=== PATIENT | female | born 1975 ===

== ENCOUNTER 2016-07-13 16:07 | Observation (INO) | payer MEDICAID ==
[2016-07-13] MEDS ORDERED: Oxycodone/Acetaminophen 5/325 mg Tab ONE (19:11)
[2016-07-13 20:01] LABS: RED CELL DISTRIBUTION WIDTH 21.7 % (11.5-14.5)
[2016-07-13 20:07] LABS: HEMATOCRIT 20.4 % (34.0-47.0); MEAN CELL VOLUME 54.9 fL (81.0-99.0); MEAN CORPUSCULAR HGB CONC 27.2 g/dL (33.0-37.0); MEAN PLATELET VOLUME 9.1 fL (7.2-11.7); WHITE BLOOD COUNT 6.7 K/uL (4.8-10.8)
[2016-07-13 20:08] LABS: CHLORIDE 101 mmol/L (98-107); SODIUM 138 mmol/L (132-148)
[2016-07-13 20:09] LABS: POTASSIUM 3.9 mmol/L (3.6-5.2)
[2016-07-13 20:11] LABS: ALB/GLOB RATIO 1.3 (1.0-2.1); AST/SGOT 27 U/L (14-36); BILIRUBIN,TOTAL 0.5 mg/dL (0.2-1.3); BLOOD UREA NITROGEN 9 mg/dL (7-17); CARBON DIOXIDE 26 mmol/L (22-30); GFR AFRICAN-AMERICAN > 60; GLUCOSE,RANDOM 85 mg/dL (65-105); TOTAL PROTEIN 7.7 g/dL (6.3-8.3)
[2016-07-13 20:12] LABS: ALKALINE PHOSPHATASE 77 U/L (38-126); ALT/SGPT 20 U/L (9-52); CALCIUM 8.3 mg/dl (8.6-10.4)
--- NOTE | 2016-07-13 22:17 | C.PDOC ---
History Of Present Illness Patient c/o low back pain x 2 days. patient denies any injuries. patient also c/ o generalized weakness, feeling tired all the time. Patient sts she has a daughter who is bed bound and has seizures, therefore patient never had time for herself to be checked. patient sts she has very heavy menstruations, but she never was was evaluated or taking Iron supplements. Chief Complaint (Nursing): Back Pain History Per: Patient History/Exam Limitations: no limitations Onset/Duration Of Symptoms: Days (2) Quality Of Discomfort: Aching Severity: Moderate Pain Scale Rating Of: 8 Exacerbating Factor(s): Movement Recent travel outside of the [place]: No Past Medical History Reviewed: Historical Data, Nursing Documentation, Vital Signs Vital Signs: Last Vital Signs Temp 98.2 F 07/13/16 22:35 Pulse 66 07/13/16 22:35 Resp 20 07/13/16 22:35 BP 105/51 L 07/13/16 22:35 Pulse Ox 100 07/13/16 22:35 - Medical History PMH: Anemia Surgical History: Tonsillectomy Family History: States: Unknown Family Hx - Social History Hx Alcohol Use: No Hx Substance Use: No - Immunization History Hx Tetanus Toxoid Vaccination: No Hx Influenza Vaccination: No Hx Pneumococcal Vaccination: No Review Of Systems Except As Marked, All Systems Reviewed And Found Negative. Constitutional: Positive for: Weakness, Malaise Musculoskeletal: Positive for: Back Pain Physical Exam - Physical Exam Appears: Non-toxic, No Acute Distress Skin: Pale Head: Atraumatic, Normacephalic Eye(s): bilateral: Conjunctiva Pale Gingiva: Normal Appearing Throat: Normal, No Erythema Neck: Normal ROM, No Midline Cervical Tenderness, No Paracervical Tenderness Chest: Symmetrical, No Tenderness Cardiovascular: Rhythm Regular, No Murmur Respiratory: Normal Breath Sounds, No Accessory Muscle Use Gastrointestinal/Abdominal: Normal Exam, Soft, No Tenderness Back: Normal Inspection, Vertebral Tenderness (LS spine area), Paraspinal Tenderness (LS spine area) Extremity: Normal ROM, No Tenderness Neurological/Psych: Oriented x3, Normal Speech, Normal Cognition, Normal Motor, Normal Sensation ED Course And Treatment - Laboratory Results Result Diagrams: 07/13/16 19:20 07/13/16 19:20 Lab Interpretation: Abnormal (severe anemia) O2 Sat by Pulse Oximetry: 100 - Other Rad LS spine xray X-Ray: Interpreted by Me Interpretation: No Fx, no litic lesions Progress Note: Labs were ordered and positive for severe anemia. 2 units of blood were ordered for transfusion. was paged and accepted patient to his service for observation, blood transfusion, notcher consult. Disposition - Disposition Disposition: HOSPITALIZED Disposition Time: 22:55 Condition: FAIR - Clinical Impression Clinical Impression: Low back pain, Symptomatic anemia Decision To Admit - Pt Status Changed To: Hospital Disposition Of: Observation - . Bed Request Type: Regular Admitting Physician: Zen Allred Patient Diagnosis: Low back pain, Symptomatic anemia
[2016-07-14 07:45] LABS: MEAN CORPUSCULAR HEMOGLOBIN 17.8 pg (27.0-31.0); MEAN CORPUSCULAR HGB CONC 29.4 g/dL (33.0-37.0); MEAN PLATELET VOLUME 9.1 fL (7.2-11.7); RED CELL DISTRIBUTION WIDTH 29.9 % (11.5-14.5); WHITE BLOOD COUNT 5.4 K/uL (4.8-10.8)
[2016-07-14 07:52] LABS: MEAN CELL VOLUME 60.6 fL (81.0-99.0)
--- NOTE | 2016-07-14 11:10 | RAD ---
HISTORY: ANEMIA COMPARISON: No prior. FINDINGS: LUNGS: No active pulmonary disease. PLEURA: No significant pleural effusion identified, no pneumothorax apparent. CARDIOVASCULAR: Normal. OSSEOUS STRUCTURES: No significant abnormalities. VISUALIZED UPPER ABDOMEN: Normal. OTHER FINDINGS: None. IMPRESSION: No active disease.
--- NOTE | 2016-07-14 11:14 | US ---
HISTORY: ANEMIA COMPARISON: None available TECHNIQUE: Sonographic evaluation of the abdomen. FINDINGS: LIVER: Measures 14.1 cm in sagittal dimension and appears within normal limits of size, shape, and echotexture. No focal hepatic mass identified. The main portal vein appears patent with normal directional flow. No intrahepatic bile duct dilatation. GALLBLADDER: Evidence of gallbladder polyps measuring up to 6 mm. No gallstones. Trace pericholecystic fluid. Gallbladder wall thickening measuring up to approximately 1 cm. Negative sonographic Beasley's sign as assessed by the cat scanner operator. COMMON BILE DUCT: Measures 5 mm. PANCREAS: Not well visualized. RIGHT KIDNEY: Measures 11.4 x 5.5 x 4.8 cm. No obstructing calculus or hydronephrosis identified. Calcification at the lower pole. LEFT KIDNEY: Measures 11.9 x 5.1 x 6.2 cm. No obstructing calculus or hydronephrosis identified. SPLEEN: Measures approximately 11.3 cm. AORTA: Limited views appear unremarkable. IVC: Limited views appear unremarkable. OTHER FINDINGS: None. IMPRESSION: Gallbladder polyps measuring up to 6 mm. No consensus exist regarding management of polyps in the size range. Current recommendations indicate continued surveillance with serial follow-up imaging at 3, 6, and 12 months. Markedly thickened gallbladder wall measuring approximately 1 cm with evidence of pericholecystic fluid. Negative sonographic Beasley's sign. No evidence of gallbladder calculi. Correlate clinically. Additional findings as above.
--- NOTE | 2016-07-14 11:25 | US ---
HISTORY: ANEMIA COMPARISON: Pelvic ultrasound performed 10/02/14 TECHNIQUE: Real-time transabdominal pelvic ultrasound was performed. In addition a transvaginal pelvic ultrasound was necessary to better depict pelvic anatomy FINDINGS: UTERUS: Measures 4.1 x 5.8 x 6.9 cm. Anteverted. Heterogeneous uterine parenchyma limits evaluation for small masses or fibroids. At least 2 probable uterine fibroids measuring approximately 2.0 x 1.9 x 2.1 cm (fundus) and 1.4 x 1.3 x 1.4 cm (superior midline ENDOMETRIUM: Measures 9 mm in diameter. CERVIX: No cervical abnormality identified. RIGHT OVARY: Measures 3.9 x 2.0 x 2.6 cm. Blood flow is demonstrated. LEFT OVARY: Measures 3.1 x 2.0 x 2.6 cm. Blood flow is demonstrated. 2.1 x 1.5 x 2.1 cm probable cyst. FREE FLUID: Small pelvic free fluid near the left ovary. OTHER FINDINGS: None. IMPRESSION: Heterogeneous uterine parenchyma. At least 2 probable uterine fibroids as above. 2.1 cm left ovarian cyst. Small pelvic free fluid near the left ovary.
--- NOTE | 2016-07-14 11:54 | RAD ---
PROCEDURE: Radiographs of the Lumbar Spine. HISTORY: BACK PAIN COMPARISON: No prior. FINDINGS: BONES: Normal alignment. No listhesis. No fracture. DISC SPACES: Narrowed L5-S1 disc space with mild marginal osteophyte formation. Consistent with degenerative disc disease. Remaining disc spaces are maintained in height. OTHER FINDINGS: None. IMPRESSION: Degenerative disc disease at L5-S1.
--- NOTE | 2016-07-14 14:12 | CP.PCM.CON ---
History of Present Illness - History of Present Illness History of Present Illness: 41 yo woman admitted with severe weakness,found to have severe anemia, S/P 2 units of PRBcs, getting her third unit. Patient is comfortable in bed, without chest pain or palpitations. The patient gives a history of heavy menstrual cycles, denies BRBPR, sarwat. Denies weight loss or nt.sweats Past Patient History - Infectious Disease Hx of Infectious Diseases: None - Past Medical History & Family History Past Medical History?: Yes - Past Social History Smoking Status: Never Smoked - CARDIAC Hx Cardiac Disorders: No - PULMONARY Hx Respiratory Disorders: No - NEUROLOGICAL Hx Neurological Disorder: No - HEENT Hx HEENT Problems: Yes Other/Comment: wears prescription eyeglasses - RENAL Hx Chronic Kidney Disease: No - ENDOCRINE/METABOLIC Hx Endocrine Disorders: No - HEMATOLOGICAL/ONCOLOGICAL Hx Blood Disorders: Yes Hx Anemia: Yes Other/Comment: Patient claimed having heavy menstrual period - INTEGUMENTARY Hx Dermatological Problems: No - MUSCULOSKELETAL/RHEUMATOLOGICAL Hx Musculoskeletal Disorders: No Hx Falls: No - GASTROINTESTINAL Hx Gastrointestinal Disorders: No - GENITOURINARY/GYNECOLOGICAL Hx Genitourinary Disorders: No - PSYCHIATRIC Hx Psychophysiologic Disorder: No Hx Substance Use: No - SURGICAL HISTORY Hx Surgeries: Yes Hx Section: Yes Hx Tonsillectomy: Yes - ANESTHESIA Hx Anesthesia: Yes Hx Anesthesia Reactions: No Hx Malignant Hyperthermia: No Has any member of the family had a problem w/ anesthesia?: No Meds Allergies/Adverse Reactions: Allergies Allergy/AdvReac Type Severity Reaction Status Date / Time No Known Allergies Allergy Verified 07/13/16 20:48 - Medications Medications: Current Medications Acetaminophen (Tylenol 325mg Tab) 650 mg PO Q6 PRN PRN Reason: Pain, moderate (4-7) Last Admin: 07/14/16 12:09 Dose: 650 mg Ferric Sodium Gluconate Complex (Ferrlecit) 125 mg IVPB DAILY WENDY Stop: 07/23/16 10:01 Results - Vital Signs Recent Vital Signs: Last Vital Signs Temp 98.6 F 07/14/16 13:40 Pulse 68 07/14/16 13:40 Resp 18 07/14/16 13:40 BP 107/66 07/14/16 13:40 Pulse Ox 99 07/14/16 07:49 - Labs Result Diagrams: 07/14/16 07:09 05/18/17 19:20 Labs: Laboratory Results - last 24 hr 07/14/16 07:09 WBC 5.4 RBC 3.96 Hgb 7.1 L Hct 24.0 L MCV 60.6 L D MCH 17.8 L MCHC 29.4 L RDW 29.9 H Plt Count 296 MPV 9.1 Assessment & Plan (1) Symptomatic anemia Assessment and Plan: 41 yo woman admitted with weakness, found to have severe microcytic anemia most likely iron deficiency from heavy periods. Will check Iron studies and B12. Have discussed with patient regarding the above, if discharged on the weekend, she will call me next week for results to check the need for more iv iron. Rec- Liquid Sugar Fortifier follow up as out patient Status: Acute
[2016-07-14 21:23] LABS: IRON 23 ug/dL (37-170)
--- NOTE | 2016-07-14 22:32 | CP.PCM.HP ---
History of Present Illness - History of Present Illness History of Present Illness: 41 year old female with extreme weakness goes to the [facility] ER. Patient has had extremely heavy periods. Hgb 5 and 2 units of packed cells were immediately transfused. Hematology consult requested... Present on Admission - Present on Admission Any Indicators Present on Admission: No History of DVT/PE: No History of Uncontrolled Diabetes: No Urinary Catheter: No Decubitus Ulcer Present: No History Surgical Site Infection Following: None Review of Systems - Constitutional Constitutional: Weakness - EENT Nose/Mouth/Throat: Dry Mouth - Cardiovascular Cardiovascular: Dyspnea on Exertion - Respiratory Respiratory: Dyspnea - Reproductive: Female Reproductive:Female: Heavy Menses - Musculoskeletal Musculoskeletal: Arthralgias - Integumentary Integumentary: Dry Skin Past Patient History - Infectious Disease Hx of Infectious Diseases: None - Past Medical History & Family History Past Medical History?: Yes - Past Social History Smoking Status: Never Smoked Chewing Tobacco Use: No Cigar Use: No - CARDIAC Hx Cardiac Disorders: No - PULMONARY Hx Respiratory Disorders: No - NEUROLOGICAL Hx Neurological Disorder: No - HEENT Hx HEENT Problems: Yes Other/Comment: wears prescription eyeglasses - RENAL Hx Chronic Kidney Disease: No - ENDOCRINE/METABOLIC Hx Endocrine Disorders: No - HEMATOLOGICAL/ONCOLOGICAL Hx Blood Disorders: Yes Hx Anemia: Yes Other/Comment: Patient claimed having heavy menstrual period - INTEGUMENTARY Hx Dermatological Problems: No - MUSCULOSKELETAL/RHEUMATOLOGICAL Hx Musculoskeletal Disorders: No Hx Falls: No - GASTROINTESTINAL Hx Gastrointestinal Disorders: No - GENITOURINARY/GYNECOLOGICAL Hx Genitourinary Disorders: No - PSYCHIATRIC Hx Psychophysiologic Disorder: No Hx Substance Use: No - SURGICAL HISTORY Hx Surgeries: Yes Hx Section: Yes Hx Tonsillectomy: Yes - ANESTHESIA Hx Anesthesia: Yes Hx Anesthesia Reactions: No Hx Malignant Hyperthermia: No Has any member of the family had a problem w/ anesthesia?: No Meds Allergies/Adverse Reactions: Allergies Allergy/AdvReac Type Severity Reaction Status Date / Time No Known Allergies Allergy Verified 07/13/16 20:48 Physical Exam - Constitutional Appears: No Acute Distress - Head Exam Head Exam: ATRAUMATIC - Eye Exam Eye Exam: Normal appearance Pupil Exam: NORMAL ACCOMODATION - ENT Exam ENT Exam: Normal Exam - Neck Exam Neck exam: Positive for: Normal Inspection - Respiratory Exam Respiratory Exam: Decreased Breath Sounds, Clear to Auscultation Bilateral - Cardiovascular Exam Cardiovascular Exam: REGULAR RHYTHM - GI/Abdominal Exam GI & Abdominal Exam: Normal Bowel Sounds - Rectal Exam Rectal Exam: Deferred - Exam External exam: NORMAL EXTERNAL EXAM - Back Exam Back exam: NORMAL INSPECTION - Neurological Exam Neurological exam: Oriented x3 - Psychiatric Exam Psychiatric exam: Normal Affect - Skin Skin Exam: Dry Results - Vital Signs Recent Vital Signs: Last Vital Signs Temp 98.1 F 07/14/16 16:54 Pulse 69 07/14/16 16:54 Resp 18 07/14/16 16:54 BP 106/74 07/14/16 16:54 Pulse Ox 98 07/14/16 15:15 - Labs Result Diagrams: 07/14/16 07:09 07/13/16 19:20 Labs: Laboratory Results - last 24 hr 07/14/16 07/14/16 07/14/16 07:09 20:47 20:47 WBC 5.4 RBC 3.96 Hgb 7.1 L Hct 24.0 L MCV 60.6 L D MCH 17.8 L MCHC 29.4 L RDW 29.9 H Plt Count 296 MPV 9.1 Retic Count Iron 23 L TIBC 445 % Saturation 5 L Ferritin 3.2 Vitamin B12 538 07/14/16 20:47 WBC RBC Hgb Hct MCV MCH MCHC RDW Plt Count MPV Retic Count 2.0 H Iron TIBC % Saturation Ferritin Vitamin B12 Assessment & Plan (1) Vaginal bleeding Status: Acute Priority: High (2) Low back pain Status: Acute Priority: Medium (3) Symptomatic anemia Status: Acute Priority: High
--- NOTE | 2016-07-14 22:49 | CP.PCM.CON ---
History of Present Illness - History of Present Illness History of Present Illness: Called to see 41yo female who is s/p hemotransfusion 3 units PRBC for severe anemia secondary to heavy menstrual bleeding since about 1 year ago. Pt is last child 9years old. H/O of previous C/s X2 and a BTL. Had her menarche at age 14 and had been having regular periods until about a year ago when she started having heavy bleeds lasting for 4-5day and having to change herself very frequently with clots. The last time she saw a boat hoist operator helper and had a pap test was about 3 years ago. She currently reports that she feels well after the hemotransfusion and is currently not bleeding. Discussion on the possible causes of excessive menstrual bleeding was done with patient, also indicating that she would have to f/u with a boat hoist operator helper for further management of menorrhagia upon discharge. Questions from Pt were answered. Review of Systems - Reproductive: Female Reproductive:Female: Heavy Menses, Abnormal Vaginal Bleeding Past Patient History - Infectious Disease Hx of Infectious Diseases: None - Past Medical History & Family History Past Medical History?: Yes - Past Social History Smoking Status: Never Smoked Chewing Tobacco Use: No Cigar Use: No - CARDIAC Hx Cardiac Disorders: No - PULMONARY Hx Respiratory Disorders: No - NEUROLOGICAL Hx Neurological Disorder: No - HEENT Hx HEENT Problems: Yes Other/Comment: wears prescription eyeglasses - RENAL Hx Chronic Kidney Disease: No - ENDOCRINE/METABOLIC Hx Endocrine Disorders: No - HEMATOLOGICAL/ONCOLOGICAL Hx Blood Disorders: Yes Hx Anemia: Yes Other/Comment: Patient claimed having heavy menstrual period - INTEGUMENTARY Hx Dermatological Problems: No - MUSCULOSKELETAL/RHEUMATOLOGICAL Hx Musculoskeletal Disorders: No Hx Falls: No - GASTROINTESTINAL Hx Gastrointestinal Disorders: No - GENITOURINARY/GYNECOLOGICAL Hx Genitourinary Disorders: No : 3 Para: 3 - PSYCHIATRIC Hx Psychophysiologic Disorder: No Hx Substance Use: No - SURGICAL HISTORY Hx Surgeries: Yes Hx Section: Yes Hx Tonsillectomy: Yes - ANESTHESIA Hx Anesthesia: Yes Hx Anesthesia Reactions: No Hx Malignant Hyperthermia: No Has any member of the family had a problem w/ anesthesia?: No Meds Allergies/Adverse Reactions: Allergies Allergy/AdvReac Type Severity Reaction Status Date / Time No Known Allergies Allergy Verified 07/13/16 20:48 - Medications Medications: Current Medications Acetaminophen (Tylenol 325mg Tab) 650 mg PO Q6 PRN PRN Reason: Pain, moderate (4-7) Last Admin: 07/14/16 12:09 Dose: 650 mg Ferric Sodium Gluconate Complex (Ferrlecit) 125 mg IVPB DAILY WENDY Stop: 07/23/16 10:01 Physical Exam - Constitutional Appears: Well - Respiratory Exam Respiratory Exam: Clear to Auscultation Bilateral, NORMAL BREATHING PATTERN - Cardiovascular Exam Cardiovascular Exam: REGULAR RHYTHM - GI/Abdominal Exam GI & Abdominal Exam: Normal Bowel Sounds - Exam External exam: NORMAL EXTERNAL EXAM Bimanual exam: Uterine Enlargement - Neurological Exam Neurological exam: Oriented x3 Results - Vital Signs Recent Vital Signs: Last Vital Signs Temp 98.1 F 07/14/16 16:54 Pulse 69 07/14/16 16:54 Resp 18 07/14/16 16:54 BP 106/74 07/14/16 16:54 Pulse Ox 98 07/14/16 15:15 - Labs Result Diagrams: 07/14/16 07:09 07/13/16 19:20 Labs: Laboratory Results - last 24 hr 07/14/16 07/14/16 07/14/16 07:09 20:47 20:47 WBC 5.4 RBC 3.96 Hgb 7.1 L Hct 24.0 L MCV 60.6 L D MCH 17.8 L MCHC 29.4 L RDW 29.9 H Plt Count 296 MPV 9.1 Retic Count Iron 23 L TIBC 445 % Saturation 5 L Ferritin 3.2 Vitamin B12 538 07/14/16 20:47 WBC RBC Hgb Hct MCV MCH MCHC RDW Plt Count MPV Retic Count 2.0 H Iron TIBC % Saturation Ferritin Vitamin B12 Assessment & Plan (1) Menses regular with excessive bleeding Status: Resolved (2) Fibroid, uterine Status: Chronic - Assessment and Plan (Free Text) Plan: Continue with Current management as per medicine. Recommends d/c home after hemotransfusion if stable. Recommends f/u with boat hoist operator helper for further management of menorrhagia. ( [facility] on wednesdays from 8:30am - 2 pm. [phone]). Reconsult as needed. - Date & Time Date: 07/14/16 Time: 22:58
[2016-07-14 23:10] LABS: BASO # 0.1 K/uL (0.0-0.2); BASO % 1.2 % (0.0-2.0); EOS # 0.2 K/uL (0.0-0.7); EOS % 3.3 % (0.0-4.0); LYMPH % 43.7 % (20.0-40.0); MEAN CELL VOLUME 63.1 fL (81.0-99.0); MEAN CORPUSCULAR HEMOGLOBIN 19.6 pg (27.0-31.0); MEAN CORPUSCULAR HGB CONC 31.1 g/dL (33.0-37.0); MEAN PLATELET VOLUME 8.8 fL (7.2-11.7); MONO # 0.4 K/uL (0.0-0.8); MONO % 5.4 % (0.0-10.0); NRBC % 0.3 % (0.0-2.0); RED CELL DISTRIBUTION WIDTH 31.8 % (11.5-14.5); WHITE BLOOD COUNT 6.9 K/uL (4.8-10.8)
[2016-07-14 23:38] VITALS: RESP 20
[2016-07-15 07:49] LABS: BASO # 0.1 K/uL (0.0-0.2); BASO % 1.1 % (0.0-2.0); EOS # 0.3 K/uL (0.0-0.7); EOS % 4.1 % (0.0-4.0); LYMPH # 2.1 K/uL (1.0-4.3); LYMPH % 30.1 % (20.0-40.0); MEAN CELL VOLUME 63.1 fL (81.0-99.0); MEAN CORPUSCULAR HEMOGLOBIN 19.5 pg (27.0-31.0); MEAN PLATELET VOLUME 9.6 fL (7.2-11.7); MONO # 0.4 K/uL (0.0-0.8); MONO % 5.7 % (0.0-10.0); NRBC % 0.1 % (0.0-2.0); RED CELL DISTRIBUTION WIDTH 32.2 % (11.5-14.5); WHITE BLOOD COUNT 6.9 K/uL (4.8-10.8)
[2016-07-15 08:24] LABS: CHLORIDE 102 mmol/L (98-107); POTASSIUM 3.8 mmol/L (3.6-5.2); SODIUM 137 mmol/L (132-148)
[2016-07-15 08:27] LABS: BLOOD UREA NITROGEN 10 mg/dL (7-17); CARBON DIOXIDE 26 mmol/L (22-30); GFR AFRICAN-AMERICAN > 60; GLUCOSE,RANDOM 82 mg/dL (65-105)
[2016-07-15 08:28] LABS: CALCIUM 8.1 mg/dl (8.6-10.4)
[2016-07-15] MEDS ORDERED: Ferric Sodium Gluconat Complex 62.5 mg/5 ml Vial IVPB SCH (10:00)
[2016-07-15 16:51] VITALS: BP 128/78; PULSE 63; TEMP 97.8; O2SAT 100
--- NOTE | 2016-07-15 22:15 | CP.PCM.PN ---
Subjective - Date & Time of Evaluation Date of Evaluation: 07/15/16 Time of Evaluation: 15:30 - Subjective Subjective: Patient is alert and responsive. She has been transfused with 3 units of packed cells.Patient has a disabled daughter at home and she is anxious to be discharged. She does not have any active vaginal bleeding at this time. Patient go to jar filler's office sunday morning for iron infusion. She promises to see her SPECIAL INVESTIGATION UNIT INVESTIGATOR specialist as soon as possible. Objective - Vital Signs/Intake and Output Vital Signs (last 24 hours): Temp Pulse Resp BP Pulse Ox 97.8 F 63 20 128/78 100 07/15/16 15:00 07/15/16 15:00 07/15/16 15:00 07/15/16 15:00 07/15/16 15:00 Intake and Output: 07/15/16 07/16/16 18:59 06:59 Intake Total 810 Balance 810 - Labs Labs: 07/15/16 07:20 07/15/16 07:20 - Constitutional Appears: No Acute Distress - Head Exam Head Exam: NORMOCEPHALIC - Eye Exam Eye Exam: Normal appearance Pupil Exam: NORMAL ACCOMODATION - ENT Exam ENT Exam: Normal Oropharynx - Neck Exam Neck Exam: Normal Inspection - Respiratory Exam Respiratory Exam: NORMAL BREATHING PATTERN - Cardiovascular Exam Cardiovascular Exam: REGULAR RHYTHM - GI/Abdominal Exam GI & Abdominal Exam: Normal Bowel Sounds - Rectal Exam Rectal Exam: Deferred - Extremities Exam Extremities Exam: Normal Capillary Refill - Back Exam Back Exam: NORMAL INSPECTION - Neurological Exam Neurological Exam: Oriented x3 - Psychiatric Exam Psychiatric exam: Normal Affect - Skin Skin Exam: Dry, Pallor Assessment and Plan (1) Vaginal bleeding Status: Acute (2) Low back pain Status: Acute (3) Symptomatic anemia Status: Acute
--- NOTE | 2016-07-17 11:12 | CARD ---
APPROVED REPORT EKG Measurement Heart [id number] <Conclusion> Normal sinus rhythm Low voltage QRS Nonspecific T wave abnormality Abnormal ECG
== END 2016-07-15 17:30 | disposition home or self-care (01) ==
LOC: C.ER 16:07 → C.3T 22:50
PROVIDERS: ADMIT Internal Medicine; ATTEND Internal Medicine
DX: D50.9 Iron deficiency anemia, unspecified (principal); N92.0 Excessive and frequent menstruation with regular cycle; M54.5 Low back pain
CPT/HCPCS: 36415; 36430; 71010; 72100; 76700; 76830; 76856; 80048; 80053; 82607; 82728; 83540; 83550; 85025; 85027; 85044; 86850; 86900; 86920; 99281; G0378; J2916; P9051

== ENCOUNTER 2016-07-17 08:48 | Emergency (ER) | payer MEDICAID ==
[2016-07-17 08:53] VITALS: TEMP 98; O2SAT 100
--- NOTE | 2016-07-17 09:13 | C.PDOC ---
History Of Present Illness 41 year old patient presents to the ED complaining of back pain that is worse today. Patient was seen here 3 days ago for back pain and was found to be anemic. She was admitted for a blood transfusion. Today, she was supposed to be seen by her ground school instructor in the office for an iron infusion. Patient states she still has the back pain which prompted the visit. She denies dysuria, nausea, vomiting, numbness, weakness, or incontinence. Time Seen by Provider: 07/17/16 09:12 Chief Complaint (Nursing): Back Pain History Per: Patient History/Exam Limitations: no limitations Onset/Duration Of Symptoms: Days (3), Worse Since (today) Current Symptoms Are (Timing): Still Present Quality Of Discomfort: "Pain" Severity: Mild Pain Scale Rating Of: 3 Previous Symptoms: Back Pain Associated Symptoms: None Exacerbating Factor(s): Nothing Recent travel outside of the [place]: No Additional History Per: Prior Records Past Medical History Reviewed: Historical Data, Nursing Documentation, Vital Signs Vital Signs: Last Vital Signs Temp 98 F 07/17/16 08:52 Pulse 63 07/17/16 12:46 Resp 18 07/17/16 12:46 BP 114/60 07/17/16 12:46 Pulse Ox 100 07/17/16 12:46 - Medical History PMH: Anemia Surgical History: Tonsillectomy Family History: States: Unknown Family Hx - Social History Hx Alcohol Use: No Hx Substance Use: No - Immunization History Hx Tetanus Toxoid Vaccination: No Hx Influenza Vaccination: No Hx Pneumococcal Vaccination: No Review Of Systems Except As Marked, All Systems Reviewed And Found Negative. Gastrointestinal: Negative for: Nausea, Vomiting Genitourinary: Negative for: Dysuria, Incontinence Musculoskeletal: Positive for: Back Pain Neurological: Negative for: Weakness, Numbness Physical Exam - Physical Exam Appears: Non-toxic, No Acute Distress Skin: Warm, Dry Head: Atraumatic, Normacephalic Eye(s): bilateral: Normal Inspection, PERRL, EOMI Oral Mucosa: Moist Neck: Normal ROM, Supple Chest: Symmetrical Cardiovascular: Rhythm Regular Respiratory: Normal Breath Sounds, No Rales, No Rhonchi, No Wheezing Gastrointestinal/Abdominal: Soft, No Tenderness Back: No CVA Tenderness, No Vertebral Tenderness, Other (tenderness to the lumbar region) Extremity: Normal ROM Neurological/Psych: Oriented x3, Normal Motor, Normal Sensation Gait: Steady ED Course And Treatment - Laboratory Results Result Diagrams: 07/17/16 10:43 O2 Sat by Pulse Oximetry: 100 (room air) Pulse Ox Interpretation: Normal Progress Note: Plan: Dilaudid. Upon reassessment, patient is resting comfortably, is no longer having back pain, no fever, no bony tenderness, no numbness, no weakness, or abdominal pain. Patient is ambulatory in the emergency department with no signs of discomfort. Case was d/w ground school instructor who requested CBC abd ferritin to be check. results were discussed with who requested patient to follow up with her in her office today after discharge. Disposition - Disposition Referrals: Christiane Chaudhry MD [Staff Provider] - Disposition: HOME/ ROUTINE Disposition Time: 12:23 Condition: IMPROVED Additional Instructions: Follow up with today. Return to Ed if feel worse. Prescriptions: oxyCODONE/Acetaminophen [Percocet 5/325 mg Tab] 1 tab PO QID PRN #20 tab PRN Reason: Pain Instructions: Acute Low Back Pain (ED), Anemia (ED) Print Language: GHANAIAN - Clinical Impression Clinical Impression: Low back pain, Symptomatic anemia - PA / HEALTH SCREENER / Resident Statement MD/DO has reviewed & agrees with the documentation as recorded. - Scribe Statement The provider has reviewed the documentation as recorded by the Scribe Savi Arana All medical record entries made by the Scribe were at my direction and personally dictated by me. I have reviewed the chart and agree that the record accurately reflects my personal performance of the history, physical exam, medical decision making, and the department course for this patient. I have also personally directed, reviewed, and agree with the discharge instructions and disposition.
[2016-07-17] MEDS ORDERED: HYDROmorphone 1 mg/ml ISec IM STA (09:17)
[2016-07-17] MEDS ORDERED: HYDROmorphone 1 mg/ml ISec ONE (09:24)
[2016-07-17 10:52] LABS: BASO # 0.1 K/uL (0.0-0.2); BASO % 1.2 % (0.0-2.0); EOS # 0.2 K/uL (0.0-0.7); EOS % 2.6 % (0.0-4.0); HEMATOCRIT 30.3 % (34.0-47.0); LYMPH # 2.2 K/uL (1.0-4.3); LYMPH % 30.9 % (20.0-40.0); MEAN CELL VOLUME 63.5 fL (81.0-99.0); MEAN CORPUSCULAR HEMOGLOBIN 19.3 pg (27.0-31.0); MEAN CORPUSCULAR HGB CONC 30.4 g/dL (33.0-37.0); MONO # 0.3 K/uL (0.0-0.8); NRBC % 0.1 % (0.0-2.0); RED CELL DISTRIBUTION WIDTH 33.6 % (11.5-14.5)
[2016-07-17 12:47] VITALS: BP 114/60; PULSE 63; RESP 18
== END 2016-07-17 12:45 | disposition home or self-care (01) ==
LOC: C.ER 08:48
DX: M54.5 Low back pain (principal); D64.9 Anemia, unspecified
CPT/HCPCS: 82728; 85025; 96372; 99284; J1170

== ENCOUNTER 2017-11-02 19:36 | Emergency (ER) | payer MEDICAID ==
[2017-11-02] MEDS ORDERED: Sodium Chloride 0.9% 1,000 ML IV ONE (20:00)
--- NOTE | 2017-11-02 20:00 | C.PDOC ---
History Of Present Illness 42 year old female presents to the emergency department with complaints of weakness and dizziness. Patient states that she has had a very heavy period over the last three days. She denies active bleeding at the time. Time Seen by Provider: 11/02/17 20:00 Chief Complaint (Nursing): Dizziness/Lightheaded History Per: Patient History/Exam Limitations: no limitations Onset/Duration Of Symptoms: Days (3) Current Symptoms Are (Timing): Still Present Seizure Or Post-ictal Symptoms: None Past Medical History Reviewed: Historical Data, Nursing Documentation, Vital Signs Vital Signs: Last Vital Signs Temp 98 F 11/03/17 05:40 Pulse 79 11/03/17 05:40 Resp 19 11/03/17 05:40 BP 122/64 11/03/17 05:40 Pulse Ox 99 11/03/17 05:40 - Medical History PMH: Anemia, Hypothyroidism Denies: Chronic Kidney Disease Surgical History: Tonsillectomy Family History: States: No Known Family Hx - Social History Hx Alcohol Use: No Hx Substance Use: No - Immunization History Hx Tetanus Toxoid Vaccination: No Hx Influenza Vaccination: No Hx Pneumococcal Vaccination: No Review Of Systems Genitourinary: Negative for: Vaginal Bleeding Neurological: Positive for: Weakness, Numbness Physical Exam - Physical Exam Appears: Non-toxic, No Acute Distress, Other (pale) Skin: Warm, Dry, Pale Head: Normacephalic Eye(s): bilateral: Conjunctiva Pale Oral Mucosa: Other (pale) Neck: Trachea Midline, Supple Chest: Symmetrical, No Tenderness Cardiovascular: Rhythm Regular, No Murmur Respiratory: No Rales, No Rhonchi, No Wheezing Gastrointestinal/Abdominal: Soft, No Tenderness, No Guarding, No Rebound Neurological/Psych: Oriented x3 ED Course And Treatment - Laboratory Results Result Diagrams: 11/03/17 05:43 11/02/17 20:26 O2 Sat by Pulse Oximetry: 100 (RA) Pulse Ox Interpretation: Normal Progress Note: Plan: Blood Bank Type and Screen. % Iron Saturation. Beta-HCG Qualitative. CMP. Total Iron Binding. CBC. Prothrombin Time. NaCl IV Fluids. HCG Qualitative Urine. Urinalysis. pt feels better. pt did not want to be hospitalized because she has to take care of her special needs child at home. Understands the risks, of permanent disability and even , but pt still wants to go home. Disposition Counseled Patient/Family Regarding: Studies Performed, Diagnosis, Need For Followup - Disposition Referrals: Zen Allred MD [Staff Provider] - Disposition Time: 20:00 Condition: FAIR Additional Instructions: please return if symptoms recur Instructions: Anemia Caused by Low Iron, Adult (DC), Heavy Periods (DC) Forms: mi[employer] (Greek) Print Language: ROMANIAN - Clinical Impression Clinical Impression: Severe anemia, Menometrorrhagia - Scribe Statement The provider has reviewed the documentation as recorded by the Scribe (Jose Rafael Tillman) Provider Attestation: All medical record entries made by the Scribe were at my direction and personally dictated by me. I have reviewed the chart and agree that the record accurately reflects my personal performance of the history, physical exam, medical decision making, and the department course for this patient. I have also personally directed, reviewed, and agree with the discharge instructions and disposition.
[2017-11-02] MEDS ORDERED: Sodium Chloride 0.9% 1,000 ML ONE (20:29)
[2017-11-02 20:32] LABS: BASO # 0.1 K/uL (0.0-0.2); BASO % 1.1 % (0.0-2.0); EOS # 0.2 K/uL (0.0-0.7); EOS % 2.1 % (0.0-4.0); LYMPH # 1.9 K/uL (1.0-4.3); LYMPH % 24.7 % (20.0-40.0); MEAN CORPUSCULAR HGB CONC 29.2 g/dL (33.0-37.0); MONO # 0.4 K/uL (0.0-0.8); MONO % 5.6 % (0.0-10.0); NEUT # 5.2 K/uL (1.8-7.0); NEUT % 66.5 % (50.0-75.0); NRBC % 0.1 % (0.0-2.0); RBC 3.74 Mil/uL (3.80-5.20); RED CELL DISTRIBUTION WIDTH 20.3 % (11.5-14.5); WHITE BLOOD COUNT 7.9 K/uL (4.8-10.8)
[2017-11-02 20:43] LABS: ALB/GLOB RATIO 1.3 (1.0-2.1); ALBUMIN 4.2 g/dL (3.5-5.0); ALT/SGPT 30 U/L (9-52); AST/SGOT 22 U/L (14-36); BLOOD UREA NITROGEN 12 mg/dL (7-17); CALCIUM 9.1 mg/dl (8.6-10.4); GFR NON-AFRICAN AMERICAN > 60; MEAN CELL VOLUME 54.9 fL (81.0-99.0)
[2017-11-02 20:46] LABS: PROTHROMBIN TIME 11.3 SECONDS (9.7-12.2)
[2017-11-02 21:02] LABS: HCG,QUALITATIVE URINE NEGATIVE (NEGATIVE); SQUAMOUS EPITHIAL < 1 /hpf (0-5); URINE BILIRUBIN NEGATIVE (NEGATIVE); URINE CLARITY Clear (Clear); URINE COLOR Straw (YELLOW); URINE GLUCOSE (UA) NORMAL (Normal); URINE LEUKOCYTE ESTERASE NEG Leu/uL (Negative); URINE PROTEIN NEGATIVE (NEGATIVE); URINE UROBILINOGEN NORMAL mg/dL (0.2-1.0)
[2017-11-02 21:09] LABS: URINE BLOOD TRACE (NEGATIVE)
[2017-11-02 21:35] LABS: % IRON SATURATION 5 (20-55); TOTAL IRON BINDING CAPACITY 424 ug/dL (250-450)
[2017-11-03 00:39] LABS: HEMOGLOBIN 6.3 g/dL (11.0-16.0)
[2017-11-03 04:23] VITALS: PULSE 79
[2017-11-03 05:51] VITALS: BP 122/64; RESP 19; TEMP 98
[2017-11-03 05:58] VITALS: O2SAT 100
== END 2017-11-03 06:16 | disposition home or self-care (01) ==
LOC: C.ER 19:36
DX: D64.9 Anemia, unspecified (principal); N92.1 Excessive and frequent menstruation with irregular cycle; E03.9 Hypothyroidism, unspecified
CPT/HCPCS: 36430; 80053; 81001; 83550; 84702; 84703; 85014; 85018; 85025; 85610; 86850; 86900; 86920; 99285; J7030; P9051